=== PATIENT | female | born 1965 | race Caucasian/White ===

== ENCOUNTER 2020-03-11 08:49 | Outpatient (CLI) | payer OTHER, SELFPAY ==
--- NOTE | ~2020-03-11 | XR_ITS ---
EXAMINATION: XR barium swallow modified EXAM DATE: 03/11/2020 09:45 INDICATION: Dysphagia. TECHNIQUE: Modified barium esophagram was performed by myself to administered fluoroscopy, in conjun ction with speech pathologist who administered barium in varying consistencies as per speech patholog ist documentation. This was recorded on tape. The DAP for this procedure was 0.9 Gycm2. FINDINGS: Oral stage: Adequate function. Pharyngeal phase: Adequate function. Laryngeal penetration: None. Aspiration: None. Laryngeal sensitivity: Present. IMPRESSION: Patient tolerated oral feedings in the upright position. Please refer to speech patholo gist findings and specific feeding recommendations. Reviewed, dictated and finalized at location A. IMPRESSION: Patient tolerated oral feedings in the upright position. Please r efer to speech pathologist findings and specific feeding recommendations.
--- NOTE | 2020-03-11 09:48 | STOPEVAL ---
MODIFIED BARIUM SWALLOW: Thank you for referring Jenni Hill to [facility].? Attending Provider: Jose A Thompson DO Referring Provider: SARI Outpatient Evaluation (MBS) Start: 03/11/20 09:42 Freq: Status: Active Protocol: Document 03/11/20 09:43 BECHERERT (Rec: 03/11/20 09:48 BECHERERT [id number]) Therapy Assessment Status Assessment Status Assessment Status Evaluation Outpatient Past Medical History Past Medical History No Past Medical/Surgical History Patient/Family Denies Significant Past Medical/ Surgical History Neurological History Hx Neurological Disorders No Significant History Cardiovascular History Hx Cardiac Catheterization Yes Hx Hypercholesterolemia Yes Hx Other Cardiac Disorders Yes: sinus tachycardia, ablasion Respiratory History Hx Respiratory Disorders No Significant History Gastrointestinal History Hx Cholecystectomy Yes Hx Gastroesophageal Reflux Disease Yes Hx Hemorrhoids Yes Genitourinary History Hx Genitourinary Disorders No Significant History Musculoskeletal History Hx Back Pain Yes: cervical neck pain Hematological History Hx Other Hematological Disorders Yes: Factor V Leiden Mutation, thalassemia minor Endocrine History Hx Hypothyroidism Yes HEENT History Hx HEENT Disorders No Significant History Integumentary History Hx Other Skin Disorders Yes: Lichen Sclorosis Reproductive History Hx Reproductive Disorders No Significant History Psychosocial History Hx Psychiatric Disorders No Significant History Pain History History of Any Previous or Ongoing No Significant History Instance of Pain Anesthesia History Hx Post-Op Nausea/Vomiting Yes Hx Other Anesthesia Reactions Yes: nausea/vomiting Pain Assessment Timing of Pain Assessment Timing of Pain Assessment Assessment Self Report Self Report Pain Level 0 Pain Score Pain Score 0: Self Report Modified Barium Swallow Evaluation Recent Swallowing History Reports Dysphagia Yes: choking;foods get stuck Duration of Dysphagia many years but reports it getting gradually worse History of Pneumonia No Reported Difficult Consistencies Thin Liquids,Solids Intake Method Prior to Swallow Oral Evaluation Diet Prior to Swallow Evaluation Regular, Level 7 Liquid Consistency Prior to Swallow Thin (0) Evaluation Dentition Comments good dentition Consistency Solid Consistency Method of Presentation Spoon Oral Preparatory Symptoms None Oral Phase Symptoms None Pharyngeal Phase Symptoms None S
== END 2020-03-11 08:50 | disposition home or self-care (01) ==
PROVIDERS: PCP Internal Medicine; Visit Provider Internal Medicine
DX: R13.10 Dysphagia, unspecified (principal)
CPT/HCPCS: 92611

== ENCOUNTER 2020-07-02 11:49 | Outpatient (CLI) | payer OTHER, SELFPAY ==
--- NOTE | ~2020-07-02 | XR_ITS ---
XR chest 2V DATE: 07/02/2020 12:06 INDICATION: Covid 19 infection TECHNIQUE: PA and lateral views COMPARISON: 07/02/2019 2 view chest FINDINGS: There is mild ground glass infiltrate in the right mid to lower lung field. The lungs are otherwise clear of infiltrate or consolidation. No pulmonary vascular congestion or pleural effusion or pneumothorax. Normal heart size. No hilar or mediastinal enlargement. Status post cholecystectomy. IMPRESSION: Mild infiltrate in the right mid to lower lung field Reviewed, dictated and finalized at location B. 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
== END 2020-07-02 11:50 | disposition home or self-care (01) ==
LOC: ANHIMG 11:55
PROVIDERS: PCP Internal Medicine; Visit Provider Internal Medicine
DX: U07.1 COVID-19 (principal); R91.8 Other nonspecific abnormal finding of lung field
CPT/HCPCS: 71046

== ENCOUNTER 2020-07-24 07:52 | Outpatient (CLI) | payer OTHER, SELFPAY ==
--- NOTE | ~2020-07-24 | MM_ITS ---
EXAMINATION: MM screening [facility] BI w kristi HISTORY: Screening TECHNIQUE: Craniocaudal and mediolateral oblique 3-D tomosynthesis images were obtained and synthetic 2-D images were generated. CAD analysis was submitted and interpreted. COMPARISON: Comparison to multiple prior studies sequentially, with oldest reviewed study dated 04/28. BREAST PARENCHYMAL COMPOSITION: There are scattered areas of fibroglandular density. FINDINGS: There is no evidence of suspicious mass, calcification, or architectural distortion to sugg est malignancy in either breast. There has been no suspicious interval change. IMPRESSION: 1. No mammographic evidence of malignancy. 2. Recommend routine screening mammography in one year. BI-RADS Category 1: Negative Reviewed, dictated and finalized at location A. 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
== END 2020-07-24 07:53 | disposition home or self-care (01) ==
LOC: ANHIMG 07:54
PROVIDERS: Family Provider Internal Medicine; PCP Internal Medicine; Visit Provider Obstetrics & Gynecology
DX: Z12.31 Encounter for screening mammogram for malignant neoplasm of breast (principal)
CPT/HCPCS: 77063; 77067

== ENCOUNTER 2020-09-04 10:55 | Outpatient (CLI) | payer OTHER, SELFPAY | END 2020-09-04 10:56 | disposition home or self-care (01) | LOC: ANHSURGERY 10:58 | PROVIDERS: PCP Internal Medicine; Visit Provider Urology | DX: N39.3 Stress incontinence (female) (male) (principal); Z01.812 Encounter for preprocedural laboratory examination | CPT/HCPCS: 87086; 87088 ==

== ENCOUNTER → 2020-09-06 00:10 | Outpatient (CLI) | payer OTHER, SELFPAY ==
[2020-09-06 18:59] LABS: SARS-CoV-2 RNA PCR Negative
== END ==
PROVIDERS: PCP Internal Medicine; Visit Provider Urology
DX: Z01.812 Encounter for preprocedural laboratory examination (principal); Z20.822 Contact with and (suspected) exposure to COVID-19
CPT/HCPCS: C9803; U0003; U0005

== ENCOUNTER 2020-09-09 01:41 | Day surgery (SDC) | payer OTHER, SELFPAY ==
[2020-09-03 15:01] VITALS: BMI 30.9
--- NOTE | 2020-09-06 15:25 | WPDANESEPPF ---
Anes - Initial Pre Proc Eval Procedure: Operation Date: 09/09/20 08:00 Proposed Procedures p Urethral Sling - Judd Carias MD Date/Time: 09/06/20 15:25 Surgeon: Judd Carias MD Pre Op Diagnosis: stress incontinence Patient Data Age: 54 Gender: F Height: 1.63 m Weight: 81.65 kg Allergies Allergy/AdvReac Type Severity Reaction Status Date / Time erythromycin base Allergy Intermediate Rash Verified 09/09/20 06:35 iodine Allergy Intermediate Nausea and Verified 09/09/20 06:35 Vomiting Macrolide Antibiotics Allergy Unknown Unknown Verified 09/09/20 06:35 codeine AdvReac Intermediate Nausea and Verified 09/09/20 06:35 Vomiting Contrast Media Allergy Intermediate Rash Uncoded 09/09/20 06:35 Home Medications Medication Instructions Recorded Confirmed Type aspirin 81 mg tablet,delayed 162 mg PO DAILY 05/12/19 09/09/20 History release metoprolol succinate 50 mg 50 mg PO BID 05/12/19 09/09/20 History tablet,extended release 24 hr Calcium 600-D3 Plus (mag-zinc) 1 tablet PO DAILY 07/02/19 09/09/20 History [place]-3 350 mg PO DAILY 07/02/19 09/09/20 History lancets 33 gauge #100 ea 05/29/20 Rx levothyroxine 112 mcg tablet See Rx Instructions .ROUTE 06/12/20 09/09/20 Rx .COMPLEX #90 each benzonatate 200 mg capsule 200 mg PO TID PRN #30 cap 07/02/20 09/09/20 Rx blood sugar diagnostic #300 ea 08/21/20 Rx blood-glucose meter #1 ea 08/21/20 Rx Patient hx anesthesia problems: none Family hx anesthesia problems: none PMFSH Past Medical History Medical History (Updated 09/08/20 @ 17:40 by Judd Carias MD) Anxiety Bulging disc DVT (deep venous thrombosis) Essential (primary) hypertension Factor V Leiden Finger fracture GERD (gastroesophageal reflux disease) Hx of cytomegalovirus infection Hx of pancreatitis Hypothyroidism, unspecified Mixed hyperlipidemia Obesity Obstructive sleep apnea Palpitations Pancreatitis Skin neoplasm Tachycardia Thalassemia trait, beta Surgical History Surgical History (Updated 07/02/19 @ 19:27 by Kareen Reed NP) H/O prior ablation treatment History of cardiac catheterization History of cholecystectomy History of dilatation and curettage times 2 History of ERCP History of hysterectomy History of laparoscopy Family History Family History (Updated 07/02/19 @ 19:29 by Kareen Reed NP) Sibling Family history of hemochromatosis Family history of coronary artery disease Factor V deficiency Father Family history of coronary artery disease Cancer Mother Family history of coronary artery disease Social History Social History (Updated 07/02/19 @ 19:32 by Kareen Reed NP) Social History: 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 Lifelong nonsmoker. Drinks socially. Her is her durable power recruitment coordinator for healthcare. His name is Gomez. They have 2 children. She desires to be a full code. Smoking status: Never smoker Alcohol intake: current Drinks per week: 1 Substance use: never Gender identity (if verbalized by the patient): Female Spiritual care concerns: No Agree to blood products: Yes Anes - Eval Final PreProcedure Day of Procedure 09/06/20 15:25 Patient weight: obese Heart: regular rate and rhythm Lungs: clear to auscultation and normal air movement Airway: Mallampati scale class II Neurological: alert and oriented Last oral intake: >/= 8 hours ASA classification: III Emergent: no Anesthetic plan: proceed Anesthesia type and monitoring: general LMA and ETT Informed Consent: The patient's anesthetic plan and its attendant risks and benefits were discussed with the patient/family/POA. Questions were solicited and answers provided to the satisfaction of the patient/family/POA.
--- NOTE | 2020-09-08 17:39 | PM.IMHP ---
H&P: HPI History of Present Illness Date/Time: 09/08/20 17:39 a 54-year-old woman with stress incontinence Chief Complaint: stress incontinence Review of Systems Review of Systems: All systems reviewed & are unremarkable except as noted in HPI and below [facility] Past Medical History Medical History (Updated 09/08/20 @ 17:40 by Judd Carias MD) Anxiety Bulging disc DVT (deep venous thrombosis) Essential (primary) hypertension Factor V Leiden Finger fracture GERD (gastroesophageal reflux disease) Hx of cytomegalovirus infection Hx of pancreatitis Hypothyroidism, unspecified Mixed hyperlipidemia Obesity Obstructive sleep apnea Palpitations Pancreatitis Skin neoplasm Tachycardia Thalassemia trait, beta Surgical History Surgical History (Updated 07/02/19 @ 19:27 by Kareen Reed NP) H/O prior ablation treatment History of cardiac catheterization History of cholecystectomy History of dilatation and curettage times 2 History of ERCP History of hysterectomy History of laparoscopy Family History Family History (Updated 07/02/19 @ 19:29 by Kareen Reed NP) Sibling Family history of hemochromatosis Family history of coronary artery disease Factor V deficiency Father Family history of coronary artery disease Cancer Mother Family history of coronary artery disease Social History Social History (Updated 07/02/19 @ 19:32 by Kareen Reed NP) Social History: 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 Lifelong nonsmoker. Drinks socially. Her is her durable power tax associate attorney for healthcare. His name is Gomez. They have 2 children. She desires to be a full code. Smoking status: Never smoker Alcohol intake: current Drinks per week: 1 Substance use: never Gender identity (if verbalized by the patient): Female Spiritual care concerns: No Agree to blood products: Yes Meds Home Medications and Allergies Home Medications Medication Instructions Recorded Confirmed Type aspirin 81 mg tablet,delayed 162 mg PO DAILY 05/12/19 05/28/20 History release metoprolol succinate 50 mg 50 mg PO BID 05/12/19 05/28/20 History tablet,extended release 24 hr Calcium 600-D3 Plus (mag-zinc) 1 tablet PO DAILY 07/02/19 05/28/20 History [place]-3 350 mg PO DAILY 07/02/19 05/28/20 History lancets 33 gauge #100 ea 05/29/20 Rx levothyroxine 112 mcg tablet See Rx Instructions .ROUTE 06/12/20 Rx .COMPLEX #90 each benzonatate 200 mg capsule 200 mg PO TID PRN #30 cap 07/02/20 Rx blood sugar diagnostic #300 ea 08/21/20 Rx blood-glucose meter #1 ea 08/21/20 Rx Allergies Allergy/AdvReac Type Severity Reaction Status Date / Time codeine Allergy Intermediate Nausea and Verified 11/15/19 08:00 Vomiting iodine Allergy Intermediate Nausea and Verified 11/15/19 08:00 Vomiting erythromycin base Allergy Unknown Unknown Verified 11/15/19 08:00 Macrolide Antibiotics Allergy Unknown Unknown Verified 11/15/19 08:00 epinephrine AdvReac Mild Palpitation Verified 11/15/19 08:00 s Contrast Media Allergy Unknown Unknown Uncoded 07/02/19 10:11 Exam Const: General: cooperative and healthy appearing HENMT: Mouth: Yes Normal oral and palatal mucosa present Eyes: General: appearance normal, both eyes and all related structures Resp: Effort & Inspection: normal respiratory effort and able to speak in complete sentences Neuro: General: oriented to person and patient oriented x3 Assessment and Plan Assessment and plan (1) ELLA (stress urinary incontinence, female): Code(s): N39.3 - Stress incontinence (female) (male) Status: Acute Assessment and Plan: urethral sling
[2020-09-09] VITALS (7 sets, daily range): BP systolic 97–136; BP diastolic 60–82; PULSE 66–97; RESP 12–18; TEMP 36.2–36.3; O2SAT 97–100; BMI 31.2
[2020-09-09] MEDS: LACTATED RINGERS 1,000 ML 30 ML IV CONT (06:52)
--- NOTE | 2020-09-09 07:18 | WPDHPUPDATE1 ---
History and Physical Update Update Date/Time: 09/09/20 07:18 History and Physical has been reviewed, including an updated exam of the patient. There are NO changes in the patient's condition. Risks, benefits, and alternatives have been discussed and questions answered. Patient agrees to proceed with procedure.
[2020-09-09] MEDS: ceFAZolin 2 GM/D5W 50 ML 2 GM/50 ML BAG IVPB (07:51)
[2020-09-09] MEDS: BUPIVACAINE/EPINEPHRINE 0.25% 50 ML VIAL 10 ML INFILTRATE (08:13)
--- NOTE | 2020-09-09 08:18 | PM.PROC ---
Procedure Note - Detailed Date of procedure: 09/09/20 Pre-op diagnosis: stress incontinence Stress urinary incontinence Post-op diagnosis: same Procedure performed: Transobturator Mid-urethral sling Cystoscopy Description of procedure: This is a patient with confirmed stress urinary incontinence. She desires correction. She understands the risks of bleeding, infection, damage to the urinary tract, lack of cure of stress incontinence, recurrence of stress incontinence, postoperative voiding dysfunction including incontinence and retention, need for ancillary procedures to loosen remove the sling, postoperative voiding dysfunction including retention and overactive bladder, hip and leg pain, dyspareunia, mesh related complications including exposure and extrusion. She agrees to proceed. She understands it will not help overactive bladder symptoms if present. She was correctly identified and informed consent obtained. She is brought to the operating room. She was given appropriate anesthesia. She was placed in the dorsal lithotomy position. All pressure points were padded. She was given appropriate perioperative antibiotics and a time-out performed. A Jain catheter is placed. I marked out the thigh incisions anesthetize the skin and made those incisions. I anesthetized the anterior vaginal wall over the mid urethra. I made a 1 cm incision. I dissected out laterally taking great care not to injure the urethra or the vaginal wall. Passed the helical trocars 1st on the left and then on the right from the thigh incision towards the vaginal incision. Sling was connected to the trocars and brought out through the thigh incision. I tensioned the sling appropriately. I cut and removed the plastic sheaths. I closed the incision with 2 0 Vicryl. I then performed cystoscopy. There was no surgical artifact or abnormalities inside the bladder. The urethra was normal without surgical artifact. I cut the excess sling material. I closed the incisions with glue. She was awakened and transferred to the PACU in stable condition. Implants: Mid urethral sling Surgeon: Judd Carias MD Drains: No Packing: No Pathology: none sent Complications: No immediate complications Condition: stable Disposition: PACU
== END 2020-09-09 09:40 | disposition home or self-care (01) ==
PROVIDERS: PCP Internal Medicine; Visit Provider Urology
PROC: (CPT 57288; principal; 2020-09-09 08:00)
DX: N39.3 Stress incontinence (female) (male) (principal); I10 Essential (primary) hypertension; E78.2 Mixed hyperlipidemia; D68.51 Activated protein C resistance; K21.9 Gastro-esophageal reflux disease without esophagitis; E03.9 Hypothyroidism, unspecified; G47.33 Obstructive sleep apnea (adult) (pediatric); D56.3 Thalassemia minor; F41.9 Anxiety disorder, unspecified; Z79.82 Long term (current) use of aspirin; Z86.718 Personal history of other venous thrombosis and embolism; E66.9 Obesity, unspecified; Z68.31 Body mass index [BMI] 31.0-31.9, adult
CPT/HCPCS: 57288; 87086; 87088; A9270; C1771; C9803; J0690; J1100; J2250; J2405; J2704; J3010; J7030; J7120; U0003; U0005

== ENCOUNTER 2021-09-09 20:26 | Observation (INO) | payer OTHER, SELFPAY ==
--- NOTE | ~2021-09-09 | NM_ITS ---
EXAMINATION: NM autumn stress w perfusion DATE: 09/10/2021 15:26 INDICATION: Chest pain. TECHNIQUE: Rest images were obtained following intravenous administration of 9.4 mCi Tc99m tetrofosmi n (Myoview). The patient was infused intravenously with Lexiscan (regadenoson). Then, 27.9 mCi Tc99m tetrofosmin (Myoview) was administered intravenously, and stress images were obtained. Data was recon structed into short axis and horizontal and vertical long axis SPECT images. Gated SPECT images were also obtained. COMPARISON: Chest CT 09/10/2021 FINDINGS: There is no definite reversible or fixed perfusion abnormality to suggest ischemia or infar ction. There is no segmental wall motion abnormality. Left ventricular ejection fraction measures > 70%. IMPRESSION: 1. No definite ischemia or infarct. 2. Normal left ventricular ejection fraction measuring >70%. Reviewed, dictated and finalized at location A.
--- NOTE | ~2021-09-09 | CT_ITS ---
EXAMINATION: CTA chest PE protocol DATE: 09/10/2021 04:10 INDICATION: Shortness of breath, chest pain, tachycardia, elevated d-dimer. TECHNIQUE: Computed tomography (CT) pulmonary angiogram of the chest was performed with 100 mL Omnipa que-350 intravenous contrast. Additional 3D reconstructions utilizing coronal maximum intensity proje ction (MIP) were performed. Automated exposure control and iterative reconstruction technique were em ployed. The dose-length product was 351.04 mGy-cm. COMPARISON: 03/15/2012 FINDINGS: . contrast opacification of the pulmonary arteries. There is moderate streak artifact from dense cont rast in the superior vena cava and right atrium. Mild scattered respiratory motion artifact. Together this decreases decreases sensitivity and specificity in some of the segmental and subsegmental pulmo nary arteries. No definitive pulmonary embolism. Indeterminate focal decreased attenuation in the ant erior segmental and more peripheral subsegmental pulmonary artery in the left upper lobe and favor vo lume averaging due to motion over pulmonary embolism. Mild dependent atelectasis in the bilateral low er lobes. No pneumonia, pulmonary edema, pleural effusion or pneumothorax. Heart size is normal. No p ericardial effusion. Thoracic aorta is normal in caliber with no dissection. No pathologically enlarg ed thoracic lymphadenopathy. 1.3 cm cyst at the dome of the liver. Minimal pneumobilia which may be r elated to prior sphincterotomy given the cholecystectomy clips at the gallbladder fossa. lymphadenopa thy. Mild to moderate thoracic lower cervical spondylosis. IMPRESSION: 1. No definitive pulmonary embolism. Region of focal decreased attenuation in the anterior segmental and more peripheral subsegmental pulmonary artery in the left upper lobe felt to more likely represen t motion artifact and pulmonary embolism. No other acute cardiopulmonary disease. Reviewed, dictated and finalized at location A. IMPRESSION: 1. No definitive pulmonary embolism. Region of focal decreased attenuation in t he anterior segmental and more peripheral subsegmental pulmonary artery in the left upper lobe felt to more likely represent motion artifact and pulmonary emb olism. No other acute cardiopulmonary disease.
--- NOTE | ~2021-09-09 | XR_ITS ---
XR chest 2V DATE: 09/09/2021 21:01 INDICATION: Left chest pain. Nausea. Left arm pain and numbness. TECHNIQUE: PA and lateral views COMPARISON: 07/02/2020 chest 2 views FINDINGS: Normal heart size. No hilar mediastinal enlargement. No pulmonary infiltrate or consolidati on, pleural effusion or pulmonary vascular congestion or pneumothorax. Status post cholecystectomy. Osteopenia. Mild degenerative spurring of the thoracic spine. IMPRESSION: No active cardiopulmonary disease Status post cholecystectomy Reviewed, dictated and finalized at location A.
--- NOTE | ~2021-09-09 | US_ITS ---
EXAMINATION: US venous doppler [facility] DATE: 09/10/2021 17:03 INDICATION: Chest pain. TECHNIQUE: Grayscale ultrasound images without and with compression and Doppler ultrasound images of the bilateral lower extremity veins were obtained. COMPARISON: Ultrasound 07/04/2019 FINDINGS: The visualized portions of right common femoral vein, profunda (deep) femoral vein, femoral vein, pop liteal vein, peroneal veins, posterior tibial veins, and greater saphenous vein outflow are patent. The visualized portions of left common femoral vein, profunda femoral vein, femoral vein, popliteal v ein, peroneal veins, posterior tibial veins, and greater saphenous vein outflow are patent. IMPRESSION: 1. No deep venous thrombosis. Reviewed, dictated and finalized at location A.
[2021-09-09 20:28] VITALS: BP 183/85; PULSE 129; RESP 18; TEMP 37.2; O2SAT 100
--- NOTE | 2021-09-09 20:28 | ECG_ITS ---
Measurements Intervals [place] Rate: 121 P: 59 ID: [id number] QRS: 18 QRSD: 89 T: 21 QT: 338 QTc: 480 Interpretive Statements SINUS TACHYCARDIA POSSIBLE RIGHT VENTRICULAR CONDUCTION DELAY [RSR (QR) IN V1/V2] NONSPECIFIC ST & T-WAVE ABNORMALITY ABNORMAL RHYTHM ECG COMPARED TO ECG 07/02/2019 10:10:[address] SEGMENT ABNORMALITY NOTED Electronically Signed On 09-10-2021 7:29:57 CDT by Gomez Jones M.D.
[2021-09-09 20:50] LABS: Basophils Absolute Auto 0.1 K/mm3 (0.0-0.1); Basophils Percent Auto 0.5 % (0.2-1.2); Eosinophils Absolute Auto 0.3 K/mm3 (0-0.3); Eosinophils Percent Auto 2.5 % (0-4.4); Hematocrit 36.8 % (37.0-47.0); Hemoglobin 11.5 g/dL (12.0-15.0); Immature Granulocyte Absolute 0.05 K/mm3 (0.00-0.031); Immature Granulocyte Percent A 0.4 % (0-0.5); Lymphocytes Percent Auto 31.5 % (18.3-44.2); Mean Corpuscular HGB Conc 31.3 g/dl (32-36); Mean Corpuscular Volume 63.9 fl (80-100); Mean Platelet Volume 10.8 fl (7.4-10.4); Monocytes Absolute Auto 0.8 K/mm3 (0.1-0.6); Monocytes Percent Auto 6.4 % (2.6-8.5); Neutrophils Absolute Auto 7.6 K/mm3 (1.3-6.7); Neutrophils Percent Auto 58.7 % (45.5-73.1); Platelet Count Result 362 k/mm3 (150-375); Red Blood Count 5.76 M/mm3 (4.2-5.4); Red Cell Distribution Width 18.2 % (11.5-14.5)
[2021-09-09 21:01] LABS: Alanine Aminotransferase 18 U/L (4-35); Albumin Level 4.5 g/dL (3.5-5.1); Alkaline Phosphatase 123 U/L (38-126); Anion Gap 10 mmol/L (8-16); Aspartate Amino Transferase 31 U/L (14-36); Bilirubin,Total 0.4 mg/dL (0.2-1.3); Blood Urea Nitrogen 21 mg/dL (7-17); Calcium 9.1 mg/dL (8.4-10.2); Carbon Dioxide 26 mmol/L (22-30); Chloride 101 mmol/L (98-107); Estimated CRCL calculation 70 ml/min; Estimated Glomerular Filt Rate > 60; Glucose 124 mg/dL (65-110); Lipase 50 U/L (23-300); Potassium 3.2 mmol/L (3.4-5.0); Sodium 137 mmol/L (137-145)
[2021-09-09 21:03] LABS: Partial Thromboplastin Time 26.9 SECONDS (22.3-36.8)
[2021-09-09 21:12] LABS: Troponin I < 0.012 ng/mL (0.000-0.034)
[2021-09-09 21:36] VITALS: BP 177/91; PULSE 112; RESP 18; O2SAT 100
[2021-09-09 22:19] LABS: D Dimer 0.78 ug/mL (<0.48)
--- NOTE | 2021-09-09 22:46 | ED.CHESTPAIN ---
HPI - Chest Pain General Chief Complaint: Chest Pain Stated Complaint: CP, arm pain, nausea Time Seen by Provider: 09/09/21 21:58 Source: patient History of Present Illness HPI narrative: Patient reports intermittent chest pain over the past couple weeks associated with shortness of breath. This evening she was very upset and yelling and had acute worsening of her her chest pain. Her pain was on her left side sharp radiated to her left arm is exacerbated by stress is alleviated with palpation of the area. Shortness may be a little bit of shortness of breath with her symptoms overall she feels improved from initial onset of her symptoms. Reports some associated with nausea but she denies any vomiting or diarrhea she denies any cough or congestion. She does report a history of factor V Leiden Related Data Home Medications Medication Instructions Recorded Confirmed aspirin 81 mg tablet,delayed 162 mg PO DAILY 05/12/19 04/15/21 release metoprolol succinate 50 mg 50 mg PO BID 05/12/19 04/15/21 tablet,extended release 24 hr Calcium 600-D3 Plus (mag-zinc) 1 tablet PO DAILY 07/02/19 04/15/21 [place]-3 350 mg PO DAILY 07/02/19 04/15/21 cholecalciferol (vitamin D3) 50 50 mcg PO DAILY 10/01/20 04/15/21 mcg (2,000 unit) capsule Saccharomyces boulardii 250 mg 250 mg PO BID 04/15/21 04/15/21 capsule lansoprazole 15 mg capsule,delayed 15 mg PO DAILY 04/15/21 04/15/21 release multivitamin 1 tablet PO DAILY 04/15/21 04/15/21 Allergies Allergy/AdvReac Type Severity Reaction Status Date / Time erythromycin base Allergy Intermediate Rash Verified 08/25/21 09:42 iodine Allergy Intermediate Nausea and Verified 08/25/21 09:42 Vomiting Macrolide Antibiotics Allergy Unknown Unknown Verified 08/25/21 09:42 codeine AdvReac Intermediate Nausea and Verified 08/25/21 09:42 Vomiting Contrast Media Allergy Intermediate Rash Uncoded 08/25/21 09:42 Review of Systems Review of Systems: CONSTITUTIONAL: Denies fever, chills, or sweats. EYES: Denies visual changes, redness, or discharge. ENT: Denies rhinorrhea, congestion, sore throat, or otalgia. CARDIOVASCULAR: Denies palpitations, or edema. RESPIRATORY: Denies cough or active dyspnea. GASTROINTESTINAL: Denies abdominal pain, vomiting, or diarrhea. GENITOURINARY: Denies dysuria or hematuria. SKIN: Denies rash or itching. MUSCULOSKELETAL: Denies back pain, joint pain, or myalgia. NEUROLOGIC: Denies headache, numbness, dizziness, or weakness. PSYCHIATRIC: Denies anxiety or depression. All systems reviewed & are unremarkable except as noted in HPI and below PMFSH Past Medical History Medical History Anxiety Bulging disc DVT (deep venous thrombosis) Essential (primary) hypertension Factor V Leiden Family history of skin cancer Finger fracture GERD (gastroesophageal reflux disease) Hx of cytomegalovirus infection Hx of pancreatitis Hypothyroidism, unspecified Mixed hyperlipidemia Obesity Obstructive sleep apnea Palpitations Pancreatitis Screening mammogram, encounter for Skin neoplasm Tachycardia Thalassemia trait, beta Surgical History Surgical History H/O prior ablation treatment History of bladder suspension procedure History of cardiac catheterization History of cholecystectomy History of dilatation and curettage Hscope, laparoscopy, D&C, lysis adhesions, chromo-pertubation - pelvic pain, infertility History of ERCP History of hysterectomy History of laparoscopy Family History Family History Sibling Family history of hemochromatosis Family history of coronary artery disease Factor V deficiency Father Family history of coronary artery disease Cancer Diabetes mellitus Heart disease Hypertension Mother Family history of coronary artery disease Osteoporosis Diabetes mellitus Heart disease O
[2021-09-09 23:57] VITALS: PULSE 98
[2021-09-09] MEDS: methylPREDNISolone SOD SUCC 40 MG VIAL IV PUSH (23:57)
[2021-09-09 23:58] VITALS: BP 134/86; PULSE 100; RESP 15; O2SAT 98
[2021-09-10] VITALS (12 sets, daily range): BP systolic 103–141; BP diastolic 59–77; PULSE 77–107; RESP 12–18; TEMP 36.3–36.6; O2SAT 95–100; BMI 30.6
[2021-09-10 00:12] LABS: Troponin I 0.073 ng/mL (0.000-0.034)
[2021-09-10] MEDS: NITROGLYCERIN OINTMENT 1 INCH DOSE TRANSDERM (01:11)
[2021-09-10] MEDS: HEPARIN SOD/D5W 100 UNITS/ML 25,000 UNITS/250 ML BAG 8 UNITS IV CONT (02:22)
[2021-09-10] MEDS: HEPARIN SODIUM 5,000 UNITS/ML VIAL 4000 UNITS IV PUSH ×2 (02:22→12:30)
[2021-09-10 02:56] LABS: Basophils Percent Auto 0.3 % (0.2-1.2); Eosinophils Percent Auto 0.2 % (0-4.4); Hematocrit 35.6 % (37.0-47.0); Immature Granulocyte Absolute 0.05 K/mm3 (0.00-0.031); Immature Granulocyte Percent A 0.4 % (0-0.5); Immature Platelet Fraction Pct 3.8 % (0.9-11.2); Lymphocytes Absolute Auto 1.71 K/mm3 (0.9-3.2); Mean Corpuscular HGB Conc 30.9 g/dl (32-36); Mean Corpuscular Hemoglobin 19.7 pg (26-34); Mean Corpuscular Volume 63.9 fl (80-100); Mean Platelet Volume 11.1 fl (7.4-10.4); Monocytes Absolute Auto 0.2 K/mm3 (0.1-0.6); Monocytes Percent Auto 1.3 % (2.6-8.5); Neutrophils Absolute Auto 11.1 K/mm3 (1.3-6.7); Neutrophils Percent Auto 84.8 % (45.5-73.1); Platelet Count Result 298 k/mm3 (150-375); Red Blood Count 5.57 M/mm3 (4.2-5.4); Red Cell Distribution Width 17.9 % (11.5-14.5); White Blood Count 13.1 K/mm3 (4.5-10.0)
[2021-09-10 03:04] LABS: INR 1.1; Prothrombin Time 13.8 Seconds (11.1-14.7)
[2021-09-10] MEDS: diphenhydrAMINE HCl INJ 50 MG/ML VIAL IV PUSH (03:13)
[2021-09-10 03:27] LABS: Troponin I 0.085 ng/mL (0.000-0.034)
--- NOTE | 2021-09-10 03:49 | PC.NURSE ---
Pt taken to CT scan via stretcher, Hep GTT paused at this time.
[2021-09-10 04:34] LABS: Partial Thromboplastin Time 187.7 SECONDS (22.3-36.8)
--- NOTE | 2021-09-10 05:42 | PC.NURSE ---
Hep gtt titrated to 6ML/Hr as per protocol - verified by cooperage shop supervisor Lisa and Michelle RAE.
--- NOTE | 2021-09-10 06:35 | ADMGEN ---
This patient, Jenni Hill, was admitted to [facility] at 0635 as an overflow for imu. Patient/family oriented to hospital policies and general routines including ID bracelet, bed and alarms, visiting hours, pain management, procedures, bathroom and other care routines, personal items, smoking policy, room service/diet, and visiting hours. Information on how to activate the Rapid Response Team has been discussed. Patient/Family are encouraged to report perceived risks to care and to ask questions if they do not understand what they are told or what they should do.
--- NOTE | 2021-09-10 09:14 | PM.CNCAR ---
Assessment and Plan Assessment and plan (1) NSTEMI (non-ST elevated myocardial infarction): Code(s): I21.4 - Non-ST elevation (NSTEMI) myocardial infarction Status: Acute Assessment and Plan: Patient presents with a good story for acute coronary syndrome and non-STEMI, with fairly typical symptoms preceded by exertional chest discomfort recently suggesting she may have coronary stenosis. She has some EKG abnormalities and mildly elevated troponins. While she had a negative cardiac catheterization in 2019, and it is unlikely she has developed new coronary disease since then, with her presenting symptoms and overall picture I think a cardiac catheterization is again indicated. The patient at this time is reluctant to proceed with a cardiac catheterization. While we can do a Lexiscan or stress Cardiolite, and it would be certainly reassuring if the results were completely normal, I am still concerned we may still miss a coronary stenosis, coronary dissection, etc.. Certainly she could have coronary artery spasm causing this or microvascular disease as well, and the cardiac cath may look normal. Patient will discuss with her and her nurse and let me know how she would like to proceed. (2) Allergic to IV contrast: Code(s): Z91.041 - Radiographic dye allergy status Status: Acute Assessment and Plan: Patient has history of an allergy to IV contrast which occurred when she was in her 20s. She cannot recall it well except for nausea vomiting and some type of rash is listed in the EMR. She had contrast prophylaxis for CT scan last night and had no problems. History of Present Illness History of Present Illness Consult date/time: 09/10/21 09:14 Requesting physician: Jun Leo MD Consult reason: chest pain Reason For Visit: Elevated troponin Narrative: Jenni Hill is a pleasant 55-year-old female followed by Dr. Wilcox for inappropriate sinus tachycardia, chest pain, history of atrial flutter, and factor 5 Leiden. She has history of possible coronary artery spasm. I was asked to see her at the request of Dr. Walter for my advice and opinion regarding her chest pain and elevated troponins. Mrs. Ana Maria ma has had twinges of chest pain for years, generally lasting 5th 5-30 seconds. Over the last few weeks she has had increasing frequency of chest discomfort. It seems to be worse when she walks up and down her driveway which is 1/4 mile long, or does some laundry. It can occur at rest. Yesterday she had a stressful event at home and was involved in an argument (involving a foreign exchange high school student) and had the onset of ?major pain? and pressure in her chest which is described as a gripping pain radiating to the left arm and upper jaw with some tingling in the left arm associated with nausea and sweating. She took her metoprolol on aspirin which was somewhat helpful but had persistent discomfort. She has no nitroglycerin. Her family urged her to come to the emergency room where she was given some nitro paste and put on heparin. She had a CTA last night which showed no definite PE (an area of attenuation noted thought to be motion artifact rather than PE). The patient has a long history of atypical chest pain. She had a negative cardiac cath in 2011. In 2015 on some type of hormone replacement therapy she had an episode of chest pain and was admitted with mildly elevated troponins, 0.[address] Molina thought she had coronary vasospasm. She had an abnormal stress echo in 2019 and a cardiac catheterization by Dr. Lopez showed no fixed significant obstructive coronary disease. When she was last seen by Dr. Wilcox in March 2021 her chest discomfort had resolved. She does have history of factor 5 Leiden and had a DVT when she was in her 20s but no PEs. She is not on anticoagulation, just aspirin. She does have a family history of coronary disease. No hypertension or diabetes. Non
--- NOTE | 2021-09-10 09:58 | EST_ITS ---
Patient Info Name: Jenni Hill Age: 55 years : 1965 Gender: Female Ht: 64 in Wt: 178 lbs BSA: 1.94 m2 HR: 86 bpm BP: 126 / 80 mmHg Heart Rhythm: Sinus Rhythm Exam Date: 09/10/2021 1:51 PM Exam Location: [facility] Patient Status: Outpatient Admit Date: 09/10/2021 Staff Ordering Physician: Mariella Rae MD Attending Provider: Anh Flores MD Exercise Technologist: Donald Prabhakar RDCS, RT Exercise Physician: Mariella Rae MD Exam Type: CA stress autumn w NM Study Info Indications R07.9 - Chest pain, unspecified A regadenoson stress test was performed. Summary 1. No abnormal ST-T wave changes with lexiscan. 2. Nuclear test results to follow. Protocol: Lexiscan Stress ECG Details Stage: REST Duration (min): 1 min : 57 sec HR (bpm): 90 SBP (mmHg): 126 DBP (mmHg): 80 Stage: REST Duration (min): 4 min : 12 sec HR (bpm): 86 SBP (mmHg): 126 DBP (mmHg): 80 Stage: STAGE 1 Duration (min): 1 min : 0 sec HR (bpm): 130 SBP (mmHg): 143 DBP (mmHg): 94 Stage: RECOVERY Duration (min): 1 min : 0 sec HR (bpm): 132 SBP (mmHg): 143 DBP (mmHg): 94 Stage: RECOVERY Duration (min): 2 min : 0 sec HR (bpm): 130 SBP (mmHg): 143 DBP (mmHg): 94 Stage: RECOVERY Duration (min): 3 min : 0 sec HR (bpm): 128 SBP (mmHg): 131 DBP (mmHg): 82 Stage: RECOVERY Duration (min): 4 min : 0 sec HR (bpm): 125 SBP (mmHg): 131 DBP (mmHg): 82 Stage: RECOVERY Duration (min): 5 min : 0 sec HR (bpm): 116 SBP (mmHg): 124 DBP (mmHg): 76 Stage: RECOVERY Duration (min): 6 min : 0 sec HR (bpm): 118 SBP (mmHg): 124 DBP (mmHg): 76 Stage: RECOVERY Duration (min): 6 min : 10 sec HR (bpm): 117 SBP (mmHg): 124 DBP (mmHg): 76 Rest HR: 86 bpm Peak HR: 135 bpm Rest Sys BP: 126 mmHg Peak Sys BP: 143 mmHg Max Pred HR: 163 bpm % Max Pred HR: 83 % Target HR: 139 bpm Max RPP: 19,305 bpm*mmHg BP Response: Normal blood pressure response Termination Reason: Completed protocol Cardiac Symptoms: None Total Time: 1 min : 0 sec Rest Drew BP: 80 mmHg Peak Drew BP: 94 mmHg Total Dose: 0.4 mg Resting ECG Normal sinus rhythm - normal ECG. Stress ECG No abnormal ST/T wave changes with exercise. Arrhythmias None. Report Signatures
[2021-09-10 12:06] LABS: Partial Thromboplastin Time 29.6 SECONDS (22.3-36.8)
--- NOTE | 2021-09-10 15:50 | PM.SD2 ---
Same Day Admit/Disch: HPI History of Present Illness Chief complaint: Elevated troponin Narrative: Jenni Hill is a 55 year old female with Factor V Leiden, HTN and HLD here for chest pain. Patient has had intermittent episodes of chest pain for over 10 years associated with emotional stress, sinus tachycardia and HTN. She follows with [facility] and her symptoms overall have improved since the addition of the metoprolol. Her last stress test and LHC was normal 2 years ago (07/04/2019). Over the past 2 weeks, patient has had chest tightness with exertion. He has become more frequent. EKG radiates to left arm and left jaw but this has happened before and patient was not to alarmed. Symptoms could last up to a minute. Last evening during a very emotional event, patient developed sharp chest pain that radiated to her jaw and left upper extremity. She had nausea but no shortness of breath. She felt her heart racing with palpitations. She took a metoprolol and baby aspirin. A short time later she took a 2nd metoprolol and 3 baby aspirin and notice some benefit with her symptoms. About 15 minutes after taking her medications, blood pressure was 157/90 and a pulse was 130. She does have factor 5 Leiden but is not on long-term anticoagulation and only takes a baby aspirin. She did have a headache associated with these symptoms. Because of these symptoms she presented to the emergency room for evaluation. [facility] Past Medical History Medical History Anxiety Bulging disc DVT (deep venous thrombosis) DVT in her 20's Essential (primary) hypertension Factor V Leiden DVT in her 20's, no PEs, not anticoagulated Family history of skin cancer Finger fracture GERD (gastroesophageal reflux disease) Hx of cytomegalovirus infection Hx of pancreatitis Hypothyroidism, unspecified Mixed hyperlipidemia Obesity Obstructive sleep apnea Palpitations Pancreatitis Screening mammogram, encounter for Skin neoplasm Tachycardia Thalassemia trait, beta Surgical History Surgical History (Updated 09/10/21 @ 16:14 by Karlos Hill MD) H/O prior ablation treatment for hx of AFlutter History of bladder suspension procedure History of cardiac catheterization History of cholecystectomy History of dilatation and curettage Hscope, laparoscopy, D&C, lysis adhesions, chromo-pertubation - pelvic pain, infertility History of ERCP History of hysterectomy History of laparoscopy Family History Family History Sibling Family history of hemochromatosis Family history of coronary artery disease Factor V deficiency Father Family history of coronary artery disease Cancer Diabetes mellitus Heart disease, Onset Age: 60 Had SC age 60, of cancer age 93 Hypertension Mother Family history of coronary artery disease Osteoporosis Diabetes mellitus Heart disease Had SC when elderly Other Breast cancer maternal aunt and aunts on fathers side Social History Social History (Updated 09/10/21 @ 16:01 by Karlos Hill MD) Social History: Lifelong nonsmoker. Drinks socially. No current or hx of drug use. Her is her durable power bankruptcy attorney for healthcare. His name is Gomez. They have 2 children. She desires to be a full code. Smoking status: Never smoker Second hand tobacco smoke exposure: No Alcohol intake: current Drinks per week: 1 Alcohol use details: Social Substance use: never Substance use type: does not use Additional living arrangements comments: spouse Gender identity (if verbalized by the patient): Female Sexual Orientation (if Verbalized by the Patient): Straight or Heterosexual Spiritual care concerns: No Agree to blood products: Yes Same Day Admit/Disch: Med Pre-admit Medications Home Medications Medication Instructions Recorded Confirmed Type
--- NOTE | 2021-09-10 18:32 | PC.NURSE ---
Patient a/o x4, CERON, no c/o pain, no SOB, or any distress noted; right FA 20g IV removed, no bleeding/no hematoma noted, gauze dressing applied to protect skin; prescriptions transmitted to patient's preferred pharmacy, discharge instructions discussed with patient and understanding verbalized. Patient wheelchaired out to private waiting vehicle accompanied by daughter.
== END 2021-09-10 18:40 | disposition home or self-care (01) ==
LOC: ANHED 09-10 05:43 → ANHCPC 09-10 12:42
PROVIDERS: Emergency Medicine; Internal Medicine Cardiovascular Disease; Admitting Provider Internal Medicine; Emergency Provider Emergency Medicine; PCP Internal Medicine; Visit Provider Internal Medicine
DX: I21.4 Non-ST elevation (NSTEMI) myocardial infarction (principal); R77.8 Other specified abnormalities of plasma proteins; R06.02 Shortness of breath; D68.51 Activated protein C resistance; E78.2 Mixed hyperlipidemia; G47.33 Obstructive sleep apnea (adult) (pediatric); K21.9 Gastro-esophageal reflux disease without esophagitis; I10 Essential (primary) hypertension; F41.9 Anxiety disorder, unspecified; E03.9 Hypothyroidism, unspecified; D56.3 Thalassemia minor; E78.5 Hyperlipidemia, unspecified; Z79.82 Long term (current) use of aspirin; Z91.041 Radiographic dye allergy status; Z86.718 Personal history of other venous thrombosis and embolism; E66.9 Obesity, unspecified; Z68.30 Body mass index [BMI] 30.0-30.9, adult
CPT/HCPCS: 36415; 71046; 71275; 78452; 80053; 83690; 84484; 85025; 85055; 85380; 85610; 85730; 93005; 93017; 93970; 96365; 96366; 96374; 96375; 99285; A9270; A9502; G0378; J1200; J1644; J2785; J2920; Q9967

== ENCOUNTER 2021-09-24 08:03 | Outpatient (CLI) | payer OTHER, SELFPAY ==
--- NOTE | ~2021-09-24 | MM_ITS ---
EXAMINATION: MM screening [facility] BI w kristi HISTORY: Screening mammogram TECHNIQUE: Craniocaudal and mediolateral oblique 3-D tomosynthesis images were obtained and synthetic 2-D images were generated. CAD analysis was submitted and interpreted. COMPARISON: 07/24/2020, 06/26/2019, 06/16/2018 BREAST PARENCHYMAL COMPOSITION: There are scattered areas of fibroglandular density. FINDINGS: There is no suspicious mass, calcification, or architectural distortion to suggest malignan cy in either breast. There has been no suspicious interval change. IMPRESSION: 1. No mammographic evidence of malignancy. 2. Recommend routine screening mammography in one year. BI-RADS Category 1: Negative Reviewed, dictated and finalized at location A.
== END 2021-09-24 08:04 | disposition home or self-care (01) ==
PROVIDERS: PCP Internal Medicine; Visit Provider Obstetrics & Gynecology
DX: Z12.31 Encounter for screening mammogram for malignant neoplasm of breast (principal)
CPT/HCPCS: 77063; 77067

== ENCOUNTER 2021-10-30 13:08 | Outpatient (CLI) | payer OTHER, SELFPAY ==
--- NOTE | ~2021-10-30 | US_ITS ---
EXAMINATION: US soft tissue head and neck DATE: 10/30/2021 14:01 INDICATION: Palpable area at the suprasternal notch at the anterior midline base of the neck TECHNIQUE: Multiple grayscale and Doppler ultrasound images of the region of concern at the supraster nal notch were obtained. COMPARISON: Chest CT dated 09/10/2021 FINDINGS: Normal appearance to the subcutaneous fat and bilateral common carotid arteries at the suprascapular notch. No abnormal pathologically enlarged lymphadenopathy, masses or fluid collections identified. R eview of relatively recent prior CT images appears concordant, also with no abnormal lymphadenopathy, mass or fluid collections. IMPRESSION: 1. Normal study. No pathologically enlarged lymphadenopathy, abnormal masses or fluid collections adrian ntified. Reviewed, dictated and finalized at location A. IMPRESSION: 1. Normal study. No pathologically enlarged lymphadenopathy, abnormal masses or fluid collections identified.
== END 2021-10-30 13:09 | disposition home or self-care (01) ==
PROVIDERS: PCP Internal Medicine; Visit Provider Nurse Practitioner
DX: R22.1 Localized swelling, mass and lump, neck (principal)
CPT/HCPCS: 76536

== ENCOUNTER 2022-01-19 12:42 | Outpatient (CLI) | payer OTHER, SELFPAY ==
--- NOTE | ~2022-01-19 | DEXA_ITS ---
Bone Density Report Name: ALEXANDER CHÁVEZ Age: 56 Sex: Female Ethnicity: White Date of : 1965 Indication: postmenopausal; screening for osteoporosis; Referring Provider: IRVING TAYLOR Study: Bone densitometry was performed. Exam Date: January 19, 2022 Accession number: [id number] Bone Density: Region BMD T-score Z-score Classification AP Spine(L1-L4) 0.995 -0.5 0.8 Normal Femoral Neck (Left) 0.738 -1.0 0.2 Normal Total Hip (Left) 0.882 -0.5 0.4 Normal Femoral Neck (Right) 0.790 -0.5 0.7 Normal Total Hip (Right) 0.913 -0.2 0.6 Normal Total Hip Mean 0.897 -0.4 0.5 Normal World Health Organization criteria for BMD impression classify patients as: Normal (T-score at or above -1.0), Osteopenia (T-score between -1.0 and -2.5), or Osteoporosis (T-score at or below -2.5). 10-year Fracture Risk: FRAX not reported because: All T-scores for Spine Total, Hip Total, Femoral Neck at or above -1.0 Clinical Information Provided by Patient: Has used the following medications: Vitamin D Menopause Age: 52 Onset of menses at age 11 Number of children 2 Impression: The patient has normal bone mass. Discussion: BONE DENSITY IS ABOVE THE MINIMUM DESIRABLE LEVEL AT ALL SKELETAL SITES TESTED. This patient?s bone mineral density is above the minimum desirable level (T-score -1.0 or better) at all sites measured. The patient should follow a healthful lifestyle (good nutrition with adequate calcium and vitamin D, and appropriate weight-bearing exercise). Follow-Up: Consider repeating this study in 5 years or sooner if there is some new clinical indication. Reported by: JOHNATHON on 01/19/2022 12:57:00 PM. Reviewed, dictated and finalized at location A. [facility]
== END 2022-01-19 12:43 | disposition home or self-care (01) ==
LOC: ANHIMG 12:43
PROVIDERS: PCP Internal Medicine; Visit Provider Nurse Practitioner
DX: Z78.0 Asymptomatic menopausal state (principal)
CPT/HCPCS: 77080

== ENCOUNTER 2022-02-20 09:52 | Outpatient (CLI) | payer OTHER, SELFPAY ==
--- NOTE | ~2022-02-20 | US_ITS ---
EXAMINATION:US venous doppler LE LT INDICATION:Left leg pain TECHNIQUE: Multiple grayscale, color flow and Doppler images of the left lower extremity deep venous systems were obtained and reviewed. COMPARISON:Ultrasound dated 09/10/2021 FINDINGS: The common femoral, superficial femoral and popliteal veins demonstrate normal respiratory variation, augmentation and compressibility. Color flow is also seen within the posterior tibial, pe roneal, greater saphenous and profunda veins. There is a small Patel's cyst of the left popliteal fos sa. IMPRESSION: 1: No lower extremity deep venous thrombosis. Reviewed, dictated and finalized at location A.
== END 2022-02-20 09:53 | disposition home or self-care (01) ==
PROVIDERS: PCP Internal Medicine; Visit Provider Internal Medicine
DX: M79.89 Other specified soft tissue disorders (principal)
CPT/HCPCS: 93971

== ENCOUNTER 2022-11-26 08:04 | Outpatient (CLI) | payer OTHER, SELFPAY ==
--- NOTE | ~2022-11-26 | MM_ITS ---
EXAMINATION: MM screening [facility] BI w kristi HISTORY: Screening mammogram TECHNIQUE: Craniocaudal and mediolateral oblique 3-D tomosynthesis images were obtained and synthetic 2-D images were generated. CAD analysis was submitted and interpreted. COMPARISON: 09/24/2021, 07/24/2020, 06/26/2019 bilateral screening mammogram examinations BREAST PARENCHYMAL COMPOSITION: There are scattered areas of fibroglandular density. FINDINGS: Stable mild fibroglandular asymmetry since 06/26/2019. There is no evidence of suspicious m ass, calcification, or architectural distortion to suggest malignancy in either breast. There has bee n no suspicious interval change. IMPRESSION: 1. No mammographic evidence of malignancy. 2. Recommend routine screening mammography in one year. BI-RADS Category 1: Negative Reviewed, dictated and finalized at location A.
== END 2022-11-26 08:05 | disposition home or self-care (01) ==
PROVIDERS: PCP Internal Medicine; Visit Provider Obstetrics & Gynecology
DX: Z12.31 Encounter for screening mammogram for malignant neoplasm of breast (principal)
CPT/HCPCS: 77063; 77067

== ENCOUNTER 2024-03-01 10:09 | Outpatient (CLI) | payer OTHER, SELFPAY ==
--- NOTE | ~2024-03-01 | MM_ITS ---
EXAMINATION: MM screening [facility] BI w kristi HISTORY: Screening TECHNIQUE: Craniocaudal and mediolateral oblique 3-D tomosynthesis images were obtained and synthetic 2-D images were generated. CAD analysis was submitted and interpreted. COMPARISON: No prior mammogram is available for comparison at this institution. BREAST PARENCHYMAL COMPOSITION: Not dense: There are scattered areas of fibroglandular density. FINDINGS: There is no evidence of suspicious mass, calcification, or architectural distortion to sugg est malignancy in either breast. There has been no suspicious interval change. IMPRESSION: 1. No mammographic evidence of malignancy. 2. Recommend routine screening mammography in one year. BI-RADS Category 1: Negative Reviewed, dictated and finalized at location B.
== END 2024-03-01 10:10 | disposition home or self-care (01) ==
LOC: ANHIMG 10:13
PROVIDERS: PCP Nurse Practitioner Family; Visit Provider Obstetrics & Gynecology
DX: Z12.31 Encounter for screening mammogram for malignant neoplasm of breast (principal)
CPT/HCPCS: 77063; 77067

== ENCOUNTER 2025-03-20 08:35 | Outpatient (CLI) | payer OTHER, SELFPAY ==
--- NOTE | ~2025-03-20 | MMUS_ITS ---
EXAMINATION: MM diagnostic yessi BI w kristi, US breast RT limited INDICATION: 59-year old female; evaluation of palpable lump in the right breast. COMPARISON: 03/01/2024 through 06/26/2019 TECHNIQUE: Digital breast tomosynthesis ML, CC and MLO views of the BILATERAL breast were obtained with computer-aided detection to assist in interpretation of the study. A radiopaque skin marker was placed over the area of RIGHT breast palpable lump. MAMMOGRAM FINDINGS: There are scattered areas of fibroglandular density. There are no suspicious masses, calcifications, architectural distortion or any other abnormality in either breast. No suspicious mammographic abnormality correlates to the radiopaque skin marker. RIGHT BREAST ULTRASOUND FINDINGS: There is sonographic abnormality that correlates to the area of palpable lump identified by the patient. . IMPRESSION: NO MAMMOGRAPHIC OR SONOGRAPHIC FINDING CORRELATES TO THE PALPABLE LUMP IN THE RIGHT BREAST. FURTHER EVALUATION OF PATIENT'S PALPABLE LUMP SHOULD BE BASED ON CLINICAL IMPRESSION. FOLLOW-UP CLINICALLY WARRANTED. NO MAMMOGRAPHIC EVIDENCE OF MALIGNANCY IN THE LEFT BREAST. BI-RADS 1, NEGATIVE Reviewed, dictated and finalized at location B. IMPRESSION: NO MAMMOGRAPHIC OR SONOGRAPHIC FINDING CORRELATES TO THE PALPABLE LUMP IN THE R IGHT BREAST. FURTHER EVALUATION OF PATIENT'S PALPABLE LUMP SHOULD BE BASED ON C LINICAL IMPRESSION. FOLLOW-UP CLINICALLY WARRANTED. NO MAMMOGRAPHIC EVIDENCE OF MALIGNANCY IN THE LEFT BREAST. BI-RADS 1, NEGATIVE
--- OUTSIDE RECORDS SUMMARY | 2025-03-20 08:56 | XMS_ITS | Encounter Summary ---
Author Organization [employer] Address 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
--- OUTSIDE RECORDS SUMMARY | 2025-03-20 08:56 | XMS_ITS | Encounter Summary ---
Author Organization [employer] Address 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
--- OUTSIDE RECORDS SUMMARY | 2025-03-20 08:56 | XMS_ITS | Encounter Summary ---
Author Organization [employer] Address 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
--- OUTSIDE RECORDS SUMMARY | 2025-03-20 08:56 | XMS_ITS | Encounter Summary ---
Author Organization [employer] Address 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
--- OUTSIDE RECORDS SUMMARY | 2025-03-20 08:56 | XMS_ITS | Encounter Summary ---
Author Organization [employer] Address 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
--- OUTSIDE RECORDS SUMMARY | 2025-03-20 08:56 | XMS_ITS | Encounter Summary ---
Author Organization [employer] Address 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
--- OUTSIDE RECORDS SUMMARY | 2025-03-20 08:56 | XMS_ITS | Encounter Summary ---
Author Organization [employer] Address [address] [place] [address] Care Team Providers Care Electronic Masking System Operator Name Role Phone Kimmy Bowman MD Primary Care Provider [phone] Encounter Details Date Type Department Care Team (Late st Contact Info) Description 04/03/2000 Outpatient Historical HIS MD Curtis HART Jorge A, MD [facility] S [facility] [address] [place] [address] Social History Tobacco Use Types Packs/Day Years Used Date Smoking Tobacco: Never Assessed Comments Unknown Sex and Gender Information Value Date Recorded Sex Assigned at Not on file 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
--- OUTSIDE RECORDS SUMMARY | 2025-03-20 08:56 | XMS_ITS | Clinical Summary ---
Author Organization [facility] [employer] Address [address] [place] [address] Care Team Providers Care Shake Maker Name Role Phone Venkata Duarte MD Primary Care Provider [phone] Source Comments [facility],non-owned Affiliates and Associated Physician Practices is amultiple site organization consisting of ambulatory clinics and hospital sitesin [place], [place], [place] and [place]. This disclosure is being madepursuant to the Care Everywhere program and may not contain all information available regarding this patient. 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 Gender Identity Not on file Sexual Orientation Not on file Plan of Treatment Health Maintenance Due Date Last Done Comments COLOGUARD (AGES 45-75) - COL ON CA SCREENING 1963 COLON MONITORING 1963 COLONOSCOPY - COLON CA SCREENING 1963 CT COLONOGRAPHY - COLON CA SCREENING 1963 Colorectal Cancer Screening 1963 FIT - COLON CA SCREENING 1963 FLEX SIG - COLON CA SCREENING 1963 LIPID TESTING 1963 MAMMOGRAM 1963 HIV SCREENING 10/11/1978 HEPATITIS C SCREENING 10/07/1981 DTAP/TDAP/TD VACCINES (1 - Tdap) 10/11/1982 PNEUMOCOCCAL VACCINE 50+ (1 of 1 - PCV) 10/11/2013 ZOSTER VACCINE (1 of 2) 10/11/2013 DEPRESSION SCREENING 06/28/2024 COVID-19 VACCINE (1 - 2023-2 5 season) 2025 INFLUENZA VACCINE (#1) 2025 Respiratory Syncytial Virus (RSV) Vaccine Pt: or over 60 yrs (1 - 1-dose 75+ series) 10/11/2038 HEPATITIS B VACCINE Aged Out No longe r eligible based on patient's age to complete this topic HIB VACCINE Aged Out No longer eligi ble based on patient's age to complete this topic HPV VACCINE Aged Out No longer eligi ble based on patient's age to complete this topic MENINGOCOCCAL (Group B) VACC INE SHARED DECISION-MAKING Aged Out No longer eligibl e based on patient's age to complete this topic MENINGOCOCCAL GROUPS A/C/Y/W VACCINE Aged Out No longer eligible b ased on patient's age to complete this topic Insurance [facility] Care Teams Shake Maker Relationship Specialty Start Date End Date Venkata Duarte MD [address] [place] [address] PCP - General Internal Medicine 06/18/14
--- OUTSIDE RECORDS SUMMARY | 2025-03-20 08:56 | XMS_ITS | Encounter Summary ---
Author Organization [employer] Address 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
--- OUTSIDE RECORDS SUMMARY | 2025-03-20 08:56 | XMS_ITS | Encounter Summary ---
Author Organization [employer] Address 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
--- OUTSIDE RECORDS SUMMARY | 2025-03-20 08:57 | XMS_ITS | Encounter Summary ---
Author Organization [employer] Address 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
--- OUTSIDE RECORDS SUMMARY | 2025-03-20 08:57 | XMS_ITS | Encounter Summary ---
Author Organization [employer] Address [address] [place] [address] Care Team Providers Care Marketing Assistant Retail Division Name Role Phone Kimmy Bowman MD Primary Care Provider [phone] Encounter Details Date Type Department Care Team (Late st Contact Info) Description 04/19/2000 Outpatient Historical HIS MD Curtis HART Jorge A, MD [facility] S [facility] [address] [place] [address] Social History Tobacco Use Types Packs/Day Years Used Date Smoking Tobacco: Never Assessed Comments Unknown Sex and Gender Information Value Date Recorded Sex Assigned at Not on file Legal Sex Female 3:42 AM FELT HAT FLANGING OPERATOR Gender Identity Not on file Sexual Orientation Not on file documented as of this encounter Plan of Treatment Not on file documented as of this encounter Visit Diagnoses Not on filedocumented in this encounter Care Teams Marketing Assistant Retail Division Relationship Specialty Start Date End Date Kimmy Bowman MD PCP - General Internal Medicine 10/10/22 documented as of this encounter
--- OUTSIDE RECORDS SUMMARY | 2025-03-20 08:57 | XMS_ITS | Encounter Summary ---
Author Organization [employer] Address 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
--- OUTSIDE RECORDS SUMMARY | 2025-03-20 08:57 | XMS_ITS | Encounter Summary ---
Author Organization [employer] Address [address] [place] [address] Care Team Providers Care Rivet Maker Name Role Phone Kimmy Bowman MD Primary Care Provider [phone] Encounter Details Date Type Department Care Team (Late st Contact Info) Description 03/09/2000 Outpatient Historical HIS MD Curtis HART Jorge A, MD 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
--- OUTSIDE RECORDS SUMMARY | 2025-03-20 08:57 | XMS_ITS | Encounter Summary ---
Author Organization [employer] Address 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
--- OUTSIDE RECORDS SUMMARY | 2025-03-20 08:57 | XMS_ITS | Encounter Summary ---
Author Organization [employer] Address 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
--- OUTSIDE RECORDS SUMMARY | 2025-03-20 08:57 | XMS_ITS | Encounter Summary ---
Author Organization [employer] Address 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
--- OUTSIDE RECORDS SUMMARY | 2025-03-20 08:57 | XMS_ITS | Encounter Summary ---
Author Organization [employer] Address 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
--- OUTSIDE RECORDS SUMMARY | 2025-03-20 08:57 | XMS_ITS | Encounter Summary ---
Author Organization [facility] Address [address] [place] [address] Phone Care Team Providers Care Melter Helper Name Role Phone Venkata Duarte MD Primary Care Provider [phone] Nestor Luke MD Unavailable [phone] Jose A Thompson DO Primary Care Provider [phone] Gerry Thacker MD Primary Care Provider [phone] Encounter Details Date Type Department Care Team (Late st Contact Info) Description 10/11/2017 Orders Only [facility] ProviderLucina MD [address] [place] [address] Social History Tobacco Use Types Packs/Day Years Used Date Smoking Tobacco: Never Smokeless Tobacco: Never Alcohol Use Standard Drinks/Week Comments No 0 (1 standard drink = 0.6 oz pur e alcohol) Comments Unknown Sex and Gender Information Value Date Recorded Sex Assigned at Not on file Legal Sex Female 2:35 AM SEAL MIXING OPERATOR Gender Identity Not on file Sexual Orientation Not on file documented as of this encounter Plan of Treatment Not on file documented as of this encounter Procedures Procedure Name Priority Date/Time Associated Diagnosis Comments SURGICAL PATHOLOGY 10/11/2017 12 :00 AM CDT documented in this encounter Results * SURGICAL PATHOLOGY (10/11/2017 12:00 AM CDT) Narrative 10/11/2017 12:00 AM CDT Ordered by an unspecified provider. us Historical Provider LAB PATHOLOGY ORDERABLES Final Result documented in this encounter Visit Diagnoses Not on filedocumented in this encounter Care Teams Melter Helper Relationship Specialty Start Date End Date Venkata Duarte MD PCP - General 10/07/17 10/25/17 Jose A Thompson DO PCP - General Internal Medicine 10/26/17 05/16/23 Gerry Thacker MD PCP - General Family Practice 05/17/23 Nestor Luke MD Surgeon General Surgery 10/12/17 documented as of this encounter
--- OUTSIDE RECORDS SUMMARY | 2025-03-20 08:57 | XMS_ITS | Encounter Summary ---
Author Organization [employer] Address 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
--- OUTSIDE RECORDS SUMMARY | 2025-03-20 08:57 | XMS_ITS | Encounter Summary ---
Author Organization [employer] Address [address] [place] [address] Care Team Providers Care Life Skills Coordinator Name Role Phone Kimmy Bowman MD Primary Care Provider [phone] Encounter Details Date Type Department Care Team (Late st Contact Info) Description 05/31/2000 Outpatient Historical HIS MD Curtis HART Jorge A, MD [facility] S [facility] [address] [place] [address] Social History Tobacco Use Types Packs/Day Years Used Date Smoking Tobacco: Never Assessed Comments Unknown Sex and Gender Information Value Date Recorded Sex Assigned at Not on file Legal Sex Female 3:42 AM EQUAL OPPORTUNITY REPRESENTATIVE Gender Identity Not on file Sexual Orientation Not on file documented as of this encounter Plan of Treatment Not on file documented as of this encounter Visit Diagnoses Not on filedocumented in this encounter Care Teams Life Skills Coordinator Relationship Specialty Start Date End Date Kimmy Bowman MD PCP - General Internal Medicine 10/10/22 documented as of this encounter
--- OUTSIDE RECORDS SUMMARY | 2025-03-20 08:57 | XMS_ITS | Clinical Summary ---
Author Organization [facility] C Address [address] [place] [address] Care Team Providers Care Fly Tier Name Role Phone Nestor Luke MD Unavailable [phone] Gerry Thacker MD Primary Care Provider [phone] Allergies Active Allergy Reactions Criticality Noted Date Comments Amlodipine Dizziness Low 05/06/2022 edema Codeine Vomiting Low 12/23/2017 Erythromycin Rash Medium Reaction: RASH, Iodinated Contrast Media Nausea only,Vomiting Low Reaction: NAUSEA, VOMITING, Iodine Nausea & Vomiting Low Iodine And Iodide Containing Products Nausea & Vomiting Low Medications omega-3 fatty acids-fish oil 684-1,200 mg capsule,delayed release(DR/EC) Activ e aspirin 81 mg enteric coated tablet Take 1 tablet (81 mg total) by mouth daily Active zinc 50 mg tablet Take by mouth Active nitroglycerin (NITROSTAT) 0.4 mg SL tablet 2 Active LORazepam (ATIVAN) 0.5 mg tablet FOR FLYING 2 Active [id number] -Lmfolate-algal 27 mg iron-1.13 mg-581.92 mg capsule Take by mouth Active meloxicam (MOBIC) 15 mg tablet 2 Active atorvastatin (LIPITOR) 20 mg tablet Take 1 tablet (20 mg total) by mouth daily 90 tablet 1 3 Active levothyroxine (SYNTHROID) 125 mcg tablet Take 1 tablet (125 mcg total) by mouth correctional program specialist before breakfast 4 Active predniSONE (DELTASONE) 50 mg tablet Take 50 mg (1 tablet) 13 hours prior to test, take 50 mg (1 tablet) 7 hours prior to test, and 50 mg (1 tablet) 1 hour prior to test. 3 tablet 4 Active metoprolol XL (TOPROL-XL) 50 mg extended release tablet Take 1 tablet (50 mg total) by mouth 2 (two) times a day 180 tablet 2 5 Active Active Problems Problem Noted Date Diagnosed Date Allergic reaction to dye 05/22/2024 Mixed hyperlipidemia 05/17/2023 Medication side effects 05/06/2022 VESNA (obstructive sleep apnea) 01/16/2020 Acquired hypothyroidism 01/06/2019 TFCC (triangular fibrocartil age complex) injury, left, initial encounter 12/23/2017 Postoperative state 10/26/2017 Severe malnutrition 2017 Acute pancreatitis without infection or necrosis 10/09/2017 Pain of upper abdomen 10/09/2017 Elevated LFTs 10/09/2017 Elevated bilirubin 10/09/2017 Pulmonary HTN 07/09/2017 H/O atrial flutter 07/09/2017 Palpitations 05/26/2017 Inappropriate sinus tachycardia 05/26/2017 Assessment & Plan (05/26/2017 3:50 PM SKOOG OPERATOR): The patient has inappropriate sinus tachycardia. She continues to experience a good response to metoprolol. It is recommended that she continue on this medication. She can follow up as needed. She has also been following with Dr. Wilcox recently for recent chest pain. She had a recent 2D echo current with Doppler done with normal LV systolic function and no wall motion abnormalities. Recurrent chest pain 08/12/2015 Overview (10/01/2016): Chest pain at rest History of deep venous thrombosis 08/12/2015 Overview (10/01/2016): H/O deep venous thrombosis Hypertensive urgency 08/12/2015 Overview (10/01/2016): Hypertensive urgency Coronary artery spasm 08/12/2015 Overview (10/01/2016): Coronary vasospasm Factor V Leiden mutation 08/12/2015 Overview (10/01/2016): Factor V Leiden S/P ablation of atrial flutter 08/12/2015 Overview (10/01/2016): S/P ablation of atrial flutter Inconclusive mammogram 07/17/2015 Anemia 04/09/2015 Overview (10/01/2016): Anemia due to other cause, other cause of anemia, not classified Calculus of gallbladder with cholecystitis with biliary obstruction Generalized abdominal pain Surgical History Surgery Date Site/Laterality Comments DILATION AND CURETTAGE OF UTERUS ABLATION CHOLECYSTECTOMY 10/11/17 ABDOMINAL SURGERY Medical History Medical History Date Comments Hypothyroidism Hypothyroidism Hx Other Medical Fx bone R. foot Hx Other Medical DVT after sprai n ankle age 18 Hx Other Medical DVT after sprai anil ankle age 18 Factor 5 Leiden mutation, heterozygous Sinus tachycardia Atrial fibrillation (HCC) Atrial flutter (HCC) Covid 05/2020 GERD (gastroesophageal reflu x disease) Sometimes when eat certain foods Anemia Thalassemia minor Family History Medical History Relation Name Comments Arthritis Father Aayush Cancer Father Aayush Coronary artery disease Father Aayush Thalia nary Artery Disease; Diabetes Father Aayush Gout Father Aayush Heart attack Father Aayush Heart disease Father Aayush Hypertension Father Aayush Coronary artery disease Mother Lizzie ackermany Artery Disease; Diabetes Mother Lizzie Relation Name Status Comments Father Aayush Alive Mother Lizzie Alive Social History Tobacco Use Types Packs/Day Years Used Date Smoking Tobacco: Never Smokeless Tobacco: Never Tobacco Cessation:Counseling Given: Not Answered Alcohol Use Standard Drinks/Week Comments Yes 2 (1 standard drink = 0.6 oz pure alcohol) Occasionally- maybe once a week Comments Unknown Sex and Gender Information Value Date Recorded Sex Assigned at Not on file Legal Sex Female 2:35 AM SKOOG OPERATOR Gender Identity Not on file Sexual Orientation Not on file Obstetrics History Last Filed Vital Signs Vital Sign Reading Time Taken Comments Blood Pressure 145/81 07/12/2024 2:08 PM SKOOG OPERATOR Pulse 75 07/12/2024 2:08 PM SKOOG OPERATOR with breath holds Temperature 36.3 C (97.3 F) 07/23/2020 8:13 AM SKOOG OPERATOR Respiratory Rate 11 07/12/2024 2:08 PM SKOOG OPERATOR Oxygen Saturation 99% 05/22/2024 8:2 9 AM SKOOG OPERATOR Inhaled Oxygen Concentration - - Weight 82.1 kg (181 lb) 05/22/2024 8:29 AM SKOOG OPERATOR Height 162.6 cm (5' 4) 05/22/2024 8:29 AM SKOOG OPERATOR Body Mass Index 31.07 05/22/2024 8:29 AM SKOOG OPERATOR Plan of Treatment Health Maintenance Due Date Last Done Comments Cervical Cancer Screening 1965 Colon Cancer Screening-Colonoscopy 1965 Depression Screening 1965 Hepatitis C Screening 1965 Hepatitis B Screening 10/11/1981 Regular Well Visit/Exam 18-64 10/11/1981 Zoster Vaccine (1 of 2) 10/11/2013 Breast Cancer Screening-Mammogram 06/14/2018 06/14/2017, 06/12/2016 Influenza Vaccine (#1) 2025 DTaP/Tdap/Td Vaccine (2 - Td or Tdap) 08/05/2033 08/05/2023 Pneumococcal vaccine <65 Aged Out No longer eligible based on patient's age to complete this topic Medical Devices Explanted Type Area Abstract Checker Device Identifier Shelf Expiration Date Model / Serial / Lot Stent Pancreatic Marino Flexi-Stent .025 In L2 Cm Od4 Fr Small Pigtail Straight Flexible - [id number] Explanted:Qty: 1 on 10/09/2017 at [facility] Stent [employer] 06/27/2022 634 1 / / [id number] Stent Pancreatic Marino .035 In Small Pigtail Curve L5 Cm Od5 Fr Flexible - [id number] Explanted:Qty: 1 on 10/09/2017 at [facility] [employer] 02/25/2018 655 2 / / [id number] Procedures Procedure Name Priority Date/Time Associated Diagnosis Comments MAMMOGRAPHY, TOMOGRAPHY, BILATERAL Routine 06/14/2017 4:39 PM SKOOG OPERATOR from Last 3 Months or Most Recently Relevant to Health Maintenance Results * MAMMOGRAPHY, TOMOGRAPHY, BILATERAL (06/14/2017 4:39 PM SKOOG OPERATOR) Anatomical Region Laterality Modality Breast Bilateral Mammography 06/14/2017 4:39 PM SKOOG OPERATOR Narrative 06/17/2017 6:08 PM SKOOG OPERATOR DARRELL MOROCHO M.D. FINAL REPORT ACC# Date Time Exam [id number] Jun 14, 2017 10:39:00 [facility] [id number] Scr Mamm phoebe 2v w/NEO Technologist(s): Thao Cadet; ; EXAMINATION: Mammogram Technique: Bilateral Digital Breast Tomosynthesis, Bilateral C-view 2D Screening mammogram. Views obtained: bilateral craniocaudal and bilateral mediolateral oblique. Computer Aided Detection was performed. Mammogram Findings: The present examination has been compared to prior imaging studies performed at [facility] on 07/19/2015 and 06/12/2016. There are scattered areas of fibroglandular density. There is no suspicious abnormality in either breast. IMPRESSION: Annual screening mammography is recommended. OVERALL FINAL ASSESSMENT: BI-RADS CATEGORY 1: Negative. Requested By: Wilian Zavala M.D. Dictated By: DARRELL MOROCHO M.D. on Jun 17 2017 12:08P This document has been electronically signed by: DARRELL MOROCHO M.D. on Jun 17 2017 12:08P [id number] MOROCHO M.D. FINAL REPORT Attending: WILIAN ZAVALA Requesting: Wilian Zavala Requesting Fax: Attending Fax: Attending ID: [id number] Requesting ID: [id number] Report To 1 ID: [id number] Report To 1 Name: , Report To 1 FAX: NextGen Order #: Procedure Note Miscellaneous, Not In File - 06/17/2017 DARRELL MOROCHO M.D. FINAL REPORT ACC# Date Time Exam [id number] Jun 14, 2017 10:39:00 [facility] [id number] [facility] Mamm phoebe 2v w/NEO Technologist(s): Thao Cadet; ; EXAMINATION: Mammogram Technique: Bilateral Digital Breast Tomosynthesis, Bilateral C-view 2D Screening mammogram. Views obtained: bilateral craniocaudal and bilateral mediolateral oblique. Computer Aided Detection was performed. Mammogram Findings: The present examination has been compared to prior imaging studies performed at [facility] on 07/19/2015 and 06/12/2016. There are scattered areas of fibroglandular density. There is no suspicious abnormality in either breast. IMPRESSION: Annual screening mammography is recommended. OVERALL FINAL ASSESSMENT: BI-RADS CATEGORY 1: Negative. Requested By: Wilian Zavala M.D. Dictated By: DARRELL MOROCHO M.D. on Jun 17 2017 12:08P This document has been electronically signed by: DARRELL MOROCHO M.D. on Jun 17 2017 12:08P [id number] MOROCHO M.D. FINAL REPORT Attending: WILIAN ZAVALA Requesting: Wilian Zavala Requesting Fax: Attending Fax: Attending ID: [id number] Requesting ID: [id number] Report To 1 ID: [id number] Report To 1 Name: , Report To 1 FAX: NextGen Order #: Wilian Zavala MD IMG MAMMO PROCEDURES Final Result from Last 3 Months or Most Recently Relevant to Health Maintenance Insurance [facility] HMO/PPO Address: [place] [address] [facility] [facility] H[facility]/PPO Address: [address] [place] [address] [facility] H[facility]/PPO Address: [address] [place] [address] Advance Directives For more information, please contact: [phone] * Full Code (Latest Code Status on File) Date Activated Date Inactivated Comments 10/09/2017 11:59 AM 2017 3:54 PM * Full Code Date Activated Date Inactivated Comments 10/09/2017 12:32 AM 10/09/2017 11:59 AM Care Teams Fly Tier Relationship Specialty Start Date End Date Gerry Thacker MD PCP - General Family Practice 05/17/23 Nestor Luke MD Surgeon General Surgery 10/12/17
--- OUTSIDE RECORDS SUMMARY | 2025-03-20 08:57 | XMS_ITS | Encounter Summary ---
Author Organization [employer] Address [address] [place] [address] Care Team Providers Care Mortgage Operations Manager Name Role Phone Kimmy Bowman MD Primary Care Provider [phone] Encounter Details Date Type Department Care Team (Late st Contact Info) Description 02/27/2000 Outpatient Historical HIS MD Curtis HART Jorge A, MD [facility] [address] [facility] [address] [place] [address] Social History Tobacco Use Types Packs/Day Years Used Date Smoking Tobacco: Never Assessed Comments Unknown Sex and Gender Information Value Date Recorded Sex Assigned at Not on file Legal Sex Female 3:42 AM DIRECTOR SUPPLIER QUALITY Gender Identity Not on file Sexual Orientation Not on file documented as of this encounter Plan of Treatment Not on file documented as of this encounter Visit Diagnoses Not on filedocumented in this encounter Care Teams Mortgage Operations Manager Relationship Specialty Start Date End Date Kimmy Bowman MD PCP - General Internal Medicine 10/10/22 documented as of this encounter
--- OUTSIDE RECORDS SUMMARY | 2025-03-20 08:57 | XMS_ITS | Encounter Summary ---
Author Organization [facility] Address [address] [place] [address] Care Team Providers Care Ice Rink Attendant Name Role Phone Kimmy Bowman MD Primary Care Provider [phone] Encounter Details Date Type Department Care Team (Late st Contact Info) Description 05/13/2000 Outpatient Historical HIS MD Curtis HART Jorge A, MD [facility] [address] [facility] [address] [place] [address] Social History Tobacco Use Types Packs/Day Years Used Date Smoking Tobacco: Never Assessed Comments Unknown Sex and Gender Information Value Date Recorded Sex Assigned at Not on file Legal Sex Female 3:42 AM ADVISORY SERVICES ASSOCIATE Gender Identity Not on file Sexual Orientation Not on file documented as of this encounter Plan of Treatment Not on file documented as of this encounter Visit Diagnoses Not on filedocumented in this encounter Care Teams Ice Rink Attendant Relationship Specialty Start Date End Date Kimmy Bowman MD PCP - General Internal Medicine 10/10/22 documented as of this encounter
--- OUTSIDE RECORDS SUMMARY | 2025-03-20 08:57 | XMS_ITS | Clinical Summary ---
Author Organization [facility] Address [address] [place] [id number] Phone Care Team Providers Care District Wildlife Manager Name Role Phone Kimmy Bowman MD Primary Care Provider [phone] Allergies Active Allergy Reactions Criticality Noted Date Comments Amlodipine Dizziness Low 05/06/2022 edema Codeine Other (See Comments) Low 12/23/2017 Dye Hives,Nausea and Vomiting High 09/19/2017 Patient can tolerate with pre medications Erythromycin Rash,Unknown Medium 09/19/2017 Reaction: RASH, Iodinated Contrast Media Other (See Comments) Low 10/10/2022 Reaction: NAUSEA, VOMITING, Iodine Nausea and Vomiting Low 10/10/2022 Medications metoprolol succinate (TOPROL XL) 50 mg Extended Release 24 hour tablet TAKE ONE TABLET BY MOUTH TWICE A DAY WITH FOOD DIRECTED 08/03/2022 Active levothyroxine 100 mcg tablet Take 100 mcg by mouth daily. Active Fish Oil-[place]-3 Fatty Acids 684-1,200 mg Capsule, Delayed Release(E.C.) Active Social History Tobacco Use Types Packs/Day Years Used Date Smoking Tobacco: Never Smokeless Tobacco: Never Tobacco Cessation:Counseling Given: Not Answered Alcohol Use Standard Drinks/Week Comments Yes 2 (1 standard drink = 0.6 oz pur e alcohol) Feeling Safe Answer Date Recorded Are you in a relationship wi th someone who hurts you emotionally and/or physically? No 10/10/2022 Comments Unknown Sex and Gender Information Value Date Recorded Sex Assigned at Not on file Legal Sex Female 3:42 AM TRAVEL PTA Gender Identity Not on file Sexual Orientation Not on file Last Filed Vital Signs Vital Sign Reading Time Taken Comments Blood Pressure 114/69 10/11/2022 1:00 AM CDT Pulse 88 10/11/2022 1:00 AM CDT Temperature 37.2 C (98.9 F) 10/10/2022 10:27 PM CDT Respiratory Rate 18 10/11/2022 1:00 AM CDT Oxygen Saturation 92% 10/11/2022 1:00 AM CDT Inhaled Oxygen Concentration - - Weight 81.6 kg (180 lb) 10/10/2022 10:27 PM CDT Height 165.1 cm (5' 5) 10/10/2022 10:27 PM CDT Body Mass Index 29.95 10/10/2022 10:27 PM CDT Plan of Treatment Health Maintenance Due Date Last Done Comments DTAP/TDAP/TD VACCINES (1 - Tdap) 10/11/1982 HPV/Cotest (21-29) 10/11/1984 CERVICAL CANCER SCREENING 10/11/1993 HPV/Cotest (30-65) 10/11/1993 PAP SMEAR 10/11/1993 COLORECTAL SCREENING 10/11/2008 Colorectal Cancer Screening 10/11/2008 FIT-DNA Q 3 years 10/11/2008 FIT/FOBT Q 1 year 10/11/2008 Flex Sig/CT Colonography Q 5 years 10/11/2008 ZOSTER VACCINE (1 of 2) 10/11/2013 BREAST CANCER SCREENING 06/14/2018 06/14/20 17, 06/12/2016, 07/19/2015, Additional history exists INFLUENZA VACCINE (#1) 2025 RSV VACCINE (60+ or ) (1 - 1-dose 75+ series) 10/11/2038 Insurance [employer] [id number] Care Teams District Wildlife Manager Relationship Specialty Start Date End Date Kimmy Bowman MD PCP - General Internal Medicine 10/10/22
== END 2025-03-20 08:36 | disposition home or self-care (01) ==
PROVIDERS: PCP Nurse Practitioner Family; Visit Provider Obstetrics & Gynecology
DX: N63.10 Unspecified lump in the right breast, unspecified quadrant (principal)
CPT/HCPCS: 76642; 77062; 77066; G0279

== ENCOUNTER 2025-06-14 02:02 | Day surgery (SDC) | payer OTHER, SELFPAY ==
[2025-05-28 14:30] VITALS: BMI 29.1
[2025-06-14 09:24] VITALS: BP 124/77; PULSE 90; RESP 21; TEMP 36.7; O2SAT 98
[2025-06-14] MEDS: LACTATED RINGERS 1,000 ML 150 ML IV CONT (09:33)
--- NOTE | 2025-06-14 10:38 | WPDANESEPPF ---
Anes - Initial Pre Proc Eval Procedure: Operation Date: 06/14/25 10:30 Proposed Procedures p Screening Colonoscopy - Kris Razo MD Date/Time: 06/14/25 10:38 Surgeon: Kris Razo MD Pre Op Diagnosis: Personal history of colon polyps, unspecified Patient Data Age: 59 Gender: F Height: 1.63 m Weight: 75.8 kg Last Vital Signs Temp 98.1 F 06/14/25 09:24 Pulse 90 06/14/25 09:24 Resp 21 H 06/14/25 09:24 BP 124/77 06/14/25 09:24 Pulse Ox 98 06/14/25 09:24 O2 Del Method Room Air 06/14/25 09:24 Allergies Allergy/AdvReac Type Severity Reaction Status Date / Time erythromycin base Allergy Intermediate Rash Verified 06/14/25 09:23 iodine Allergy Intermediate Nausea and Verified 06/14/25 09:23 Vomiting Macrolide Antibiotics Allergy Unknown Unknown Verified 06/14/25 09:23 codeine AdvReac Intermediate Nausea and Verified 06/14/25 09:23 Vomiting Contrast Media Allergy Intermediate Rash Uncoded 03/05/25 14:15 Home Medications ?Medication ?Instructions ?Recorded ?Confirmed ?Type aspirin 81 mg tablet,delayed 81 mg PO DAILY 05/12/19 06/14/25 History release (Adult Aspirin Regimen) metoprolol succinate 50 mg 50 mg PO DAILY #0 tabs 09/10/21 06/14/25 Rx tablet,extended release 24 hr blood sugar diagnostic #50 ea 08/07/24 01/23/25 Rx levothyroxine 125 mcg tablet 125 mcg PO DAILY #90 tabs 01/23/25 06/14/25 Rx Patient hx anesthesia problems: none Family hx anesthesia problems: none Results Review: All pre-operative results and documents have been reviewed as part of the pre-operative evaluation. [facility] Past Medical History Medical History Breast mass, right Plantar fasciitis of right foot Screening mammogram, encounter for Pneumonia due to COVID-19 virus Atrial flutter Family history of skin cancer Hx of cytomegalovirus infection Tachycardia Hx of pancreatitis Anxiety Bulging disc Finger fracture GERD (gastroesophageal reflux disease) Pancreatitis DVT (deep venous thrombosis) DVT in her 20's Palpitations Essential (primary) hypertension Factor V Leiden DVT in her 20's, no PEs, not anticoagulated Mixed hyperlipidemia Hypothyroidism, unspecified Obstructive sleep apnea Skin neoplasm Thalassemia trait, beta Surgical History Surgical History S/P ablation of atrial flutter History of bladder suspension procedure History of ERCP History of laparoscopy History of dilatation and curettage Hscope, laparoscopy, D&C, lysis adhesions, chromo-pertubation - pelvic pain, infertility H/O prior ablation treatment for hx of AFlutter History of cardiac catheterization History of cholecystectomy Family History Family History Sibling Family history of hemochromatosis Family history of coronary artery disease Factor V deficiency Father Family history of coronary artery disease Cancer Diabetes mellitus Heart disease, Onset Age: [address] age 58, of cancer age 93 Hypertension Mother Family history of coronary artery disease Osteoporosis Diabetes mellitus Heart disease Had CT when elderly Other Breast cancer maternal aunt and aunts on fathers side Social History Social History Social History: Lifelong nonsmoker. Drinks socially. No current or hx of drug use. Her is her durable power prosecuting attorney for healthcare. His name is Gomez. They have 2 children. She desires to be a full code. Smoking status: Never smoker Second hand tobacco smoke exposure: No Alcohol intake: current Drinks per week: 1 Alcohol use details: occasionally Substance use: never Substance use type: does not use Lack of Transportation: No Lack of Food: Never True Current Housing: I Have Housing Concerned About Future Housing: No Difficulty Paying Gas/Electric Bills: No Difficulty Paying for Meds: No Currently Unemployed: Decline to Answer Education: Bachelor's Degree Difficulty w/ Childcare or Family Care: No Living arrangements: with family Additional living arrangements comments: spouse Occupation/Education: retired Gender identity (if verbalized by the patient): Female Sexual Orientation (if Verbalized by the Patient): Straight or Heterosexual Spiritual care concerns: No Agree to blood products: Yes Anes - Eval Final PreProcedure Day of Procedure 06/14/25 10:38 Patient weight: overweight Lungs: normal air movement Airway: Mallampati scale class II Neurological: alert and oriented Last oral intake: >/= 8 hours ASA classification: II Emergent: no Anesthetic plan: proceed Anesthesia type and monitoring: general GIVS and standard monitoring Results Review: All pre-operative results and documents have been reviewed as part of the pre-operative evaluation. Hypothyroidism, pt on b talha for hx of heart issues, unclear, no CT hx, VESNA is very mild, no CPAP. Factor 5 leiden def on ASA only. Pt doing yoga, walking, no cp or sob. Informed Consent: The patient's anesthetic plan and its attendant risks and benefits were discussed with the patient/family/POA. Questions were solicited and answers provided to the satisfaction of the patient/family/POA.
--- NOTE | 2025-06-14 10:42 | PM.IMHP2 ---
H&P: HPI History of Present Illness Date/Time: 06/14/25 10:42 Chief Complaint: Family history of colon polyps Narrative: This patient has family history of colorectal polyps. Her mother had several polyps in her 50s, even requiring colonic resection. Her last colonoscopy was 5 years ago, not sure if there were polyps or not. Review of Systems Review of Systems: All systems reviewed & are unremarkable except as noted in HPI and below PMFSH Past Medical History Medical History Breast mass, right Plantar fasciitis of right foot Screening mammogram, encounter for Pneumonia due to COVID-19 virus Atrial flutter Family history of skin cancer Hx of cytomegalovirus infection Tachycardia Hx of pancreatitis Anxiety Bulging disc Finger fracture GERD (gastroesophageal reflux disease) Pancreatitis DVT (deep venous thrombosis) DVT in her 20's Palpitations Essential (primary) hypertension Factor V Leiden DVT in her 20's, no PEs, not anticoagulated Mixed hyperlipidemia Hypothyroidism, unspecified Obstructive sleep apnea Skin neoplasm Thalassemia trait, beta Surgical History Surgical History S/P ablation of atrial flutter History of bladder suspension procedure History of ERCP History of laparoscopy History of dilatation and curettage Hscope, laparoscopy, D&C, lysis adhesions, chromo-pertubation - pelvic pain, infertility H/O prior ablation treatment for hx of AFlutter History of cardiac catheterization History of cholecystectomy Family History Family History Sibling Family history of hemochromatosis Family history of coronary artery disease Factor V deficiency Father Family history of coronary artery disease Cancer Diabetes mellitus Heart disease, Onset Age: 60 Had HI age 58, of cancer age 93 Hypertension Mother Family history of coronary artery disease Osteoporosis Diabetes mellitus Heart disease Had HI when elderly Other Breast cancer maternal aunt and aunts on fathers side Social History Social History Social History: Lifelong nonsmoker. Drinks socially. No current or hx of drug use. Her is her durable power workers compensation defense attorney for healthcare. His name is Gomez. They have 2 children. She desires to be a full code. Smoking status: Never smoker Second hand tobacco smoke exposure: No Alcohol intake: current Drinks per week: 1 Alcohol use details: occasionally Substance use: never Substance use type: does not use Lack of Transportation: No Lack of Food: Never True Current Housing: I Have Housing Concerned About Future Housing: No Difficulty Paying Gas/Electric Bills: No Difficulty Paying for Meds: No Currently Unemployed: Decline to Answer Education: Bachelor's Degree Difficulty w/ Childcare or Family Care: No Living arrangements: with family Additional living arrangements comments: spouse Occupation/Education: retired Gender identity (if verbalized by the patient): Female Sexual Orientation (if Verbalized by the Patient): Straight or Heterosexual Spiritual care concerns: No Agree to blood products: Yes Meds Home Medications and Allergies Home Medications ?Medication ?Instructions ?Recorded ?Confirmed ?Type aspirin 81 mg tablet,delayed 81 mg PO DAILY 05/12/19 06/14/25 History release (Adult Aspirin Regimen) metoprolol succinate 50 mg 50 mg PO DAILY #0 tabs 09/10/21 06/14/25 Rx tablet,extended release 24 hr blood sugar diagnostic #50 ea 08/07/24 01/23/25 Rx levothyroxine 125 mcg tablet 125 mcg PO DAILY #90 tabs 01/23/25 06/14/25 Rx Allergies Allergy/AdvReac Type Severity Reaction Status Date / Time erythromycin base Allergy Intermediate Rash Verified 06/14/25 09:23 iodine Allergy Intermediate Nausea and Verified 06/14/25 09:23 Vomiting Macrolide Antibiotics Allergy Unknown Unknown Verified 06/14/25 09:23 codeine AdvReac Intermediate Nausea and Verified 06/14/25 09:23 Vomiting Contrast Media Allergy Intermediate Rash Uncoded 03/05/25 14:15 Vital Signs Vital Signs - 24 hr 06/14/25 09:24 Temperature 98.1 F Pulse Rate 90 Respiratory Rate 21 H Blood Pressure 124/77 Pulse Oximetry 98 Oxygen Delivery Room Air Exam Const: General: cooperative and healthy appearing Resp: Effort & Inspection: normal respiratory effort and able to speak in complete sentences Auscultation: clear to auscultation bilaterally Cardio: Rate: regular rate Rhythm: regular rhythm GI: Inspection: normal to inspection GI Palp: No No hepatosplenomegaly present Auscultation: normal bowel sounds Rectal Exam: deferred Skin: General skin exam: normal color Psych: Appearance: grossly normal Mental Status: mental status grossly normal Assessment and Plan Assessment and plan (1) Family history of polyps in the colon: Code(s): Z83.719 - Family history of colon polyps, unspecified Status: Acute Assessment and Plan: The patient is deemed a good candidate for the procedure. Consent signed. Will proceed. Prior Studies I have reviewed the following patient records and this information was taken into consideration when formulating the assessment and plan.: previous labs, previous ER visits, previous hospitalizations and previous clinic visits
[2025-06-14 11:01] VITALS: BP 112/70; PULSE 72; RESP 22; O2SAT 98
[2025-06-14 11:11] VITALS: BP 99/66; PULSE 68; RESP 23; O2SAT 97
[2025-06-14 11:21] VITALS: BP 115/71; PULSE 65; RESP 17; O2SAT 99
== END 2025-06-14 11:39 | disposition home or self-care (01) ==
PROVIDERS: PCP Nurse Practitioner Family; Referring Provider Nurse Practitioner Family; Visit Provider Internal Medicine Gastroenterology
PROC: 0DJD8ZZ Inspection of Lower Intestinal Tract, Via Natural or Artificial Opening Endoscopic (ICD-10-PCS; CPT 45378; principal; 2025-06-14 10:30)
DX: Z12.11 Encounter for screening for malignant neoplasm of colon (principal); K64.8 Other hemorrhoids; Z83.719 Family history of colon polyps, unspecified
CPT/HCPCS: 45378; J2704; J7120